=== PATIENT | female | born 1970 | race Caucasian/White ===

== ENCOUNTER 2022-08-18 15:50 | Outpatient (CLI) | payer OTHER, SELFPAY ==
--- NOTE | ~2022-08-18 | XR_ITS ---
XR knee RT 3V 08/18/2022 16:11 Indication: Right knee pain Procedure: 3 views right knee Comparison: No prior studies for comparison. Findings: There is mild tricompartment osteoarthritis of the knee. No significant joint effusion. No acute fracture or traumatic malalignment. There is a small corticated osteochondroma originating from the proximal tibial metaphysis medially. Impression: 1: Mild osteoarthritis of the right knee. Reviewed, dictated and finalized at location A. Impression: 1: Mild osteoarthritis of the right knee.
== END 2022-08-18 15:51 | disposition home or self-care (01) ==
LOC: ANHIMG 15:53
PROVIDERS: PCP Family Medicine; Visit Provider Family Medicine
DX: M25.561 Pain in right knee (principal); M17.11 Unilateral primary osteoarthritis, right knee
CPT/HCPCS: 73562